=== PATIENT | male | born 1985 | race American Indian/Alaskan Native ===

== ENCOUNTER 2020-08-26 13:34 | Outpatient (REF) | payer OTHER, SELFPAY ==
[2020-08-26 16:49] LABS: Platelet Count 187 X10*3/uL (160-400)
[2020-08-26 16:59] LABS: Estimated Average Glucose 88 mg/dL; Hemoglobin A1c % 4.7 %
[2020-08-26 17:02] LABS: Prothrombin Time 11.4 SEC (10.8-13.0)
[2020-08-26 17:10] LABS: Anion Gap 11 (12-20); Blood Urea Nitrogen 18 mg/dL (9-16); Calcium 9.1 mg/dL (8.4-10.2); Carbon Dioxide 30 mmol/L (22-29); Chloride 102 mmol/L (96-108); Estimated Glomerular Filt Rate > 60; Glucose Random 84 mg/dL (60-115); Potassium 4.5 mmol/l (3.3-5.1); Sodium 138 mmol/L (135-145)
[2020-08-29 08:57] LABS: HBsAGNum1 0.21 S/CO (0.00-0.99); HIV AB/AG Nonreactive (Nonreactive); HIV Num 1 0.08 S/CO (0.00-0.99); Hepatitis B Surface Antigen Negative (Negative)
[2020-08-29 09:46] LABS: ~HepC Num1 0.07 S/CO (0.00-0.79); ~Hepatitis C Antibody Nonreactive (Nonreactive)
== END 2020-08-26 13:35 | disposition home or self-care (01) ==
LOC: HO.HMGCLDS 13:34
PROVIDERS: PCP Internal Medicine
DX: Z01.812 Encounter for preprocedural laboratory examination (principal)
CPT/HCPCS: 36415; 80048; 83036; 85049; 85610; 86803; 87340; 87389

== ENCOUNTER 2021-08-02 13:08 | Outpatient (REF) | payer OTHER, SELFPAY ==
[2021-08-02 16:42] LABS: INTERNATIONAL NORM RATIO 0.9 (0.9-1.1); Prothrombin Time 10.4 SEC (9.9-13.0)
[2021-08-02 16:45] LABS: Platelet Count 159 X10*3/uL (160-400)
[2021-08-02 17:04] LABS: Anion Gap 12 (12-20); Blood Urea Nitrogen 12 mg/dL (9-16); Calcium 9.5 mg/dL (8.4-10.2); Carbon Dioxide 27 mmol/L (22-29); Chloride 106 mmol/L (96-108); Estimated Glomerular Filt Rate > 60; Glucose Random 89 mg/dL (60-115); Potassium 4.2 mmol/L (3.3-5.1); Sodium 141 mmol/L (135-145)
[2021-08-03 09:21] LABS: HBsAGNum1 0.18 S/CO (0.00-0.99); HIV AB/AG Nonreactive (Nonreactive); HIV Num 1 0.12 S/CO (0.00-0.99); Hepatitis B Surface Antigen Negative (Negative); ~HepC Num1 0.08 S/CO (0.00-0.79); ~Hepatitis C Antibody Nonreactive (Nonreactive)
== END 2021-08-02 13:09 | disposition home or self-care (01) ==
LOC: HO.HMGCLDS 13:08
PROVIDERS: PCP Internal Medicine
DX: Z01.812 Encounter for preprocedural laboratory examination (principal)
CPT/HCPCS: 36415; 80048; 85018; 85049; 85610; 86803; 87340; 87389

== ENCOUNTER 2024-06-24 11:19 | Outpatient (AMB) | payer OTHER, SELFPAY ==
[2024-06-24 11:27] VITALS: BP 116/80; PULSE 91; TEMP 36.9; O2SAT 97; BMI 24.8
--- NOTE | 2024-06-24 11:27 | MHC.OFFWIV ---
Intake Vital Signs 06/24/24 11:27 Height 5 ft 8 in Weight 163 lb BMI 24.8 BP 116/80 Blood Pressure Location Rt brachial Position Sitting Pulse 91 Pulse Source Pulse Oximeter Temp 98.4 F Temp Source Oral Pulse Oximetry (%) 97 Oxygen Delivery Method Room Air Intake Visit Reasons: rt shoulder pain( 10) and swelling Intake Note: pt c/o severe LT shoulder pain. Ongoing, worsening over 2-3 months. Patient Tobacco Use Status: Never used Tobacco Allergies Laxative Allergy (Mild, Uncoded 06/24/24 11:51) Abdominal Pain LAXATIVE Allergy (Unknown, Uncoded 06/24/24 11:51) STOMACH UPSET salacylic acid Allergy (Unknown, Uncoded 06/24/24 11:51) hives Do you need a note to return to daycare/school/sports/work: No HPI rt shoulder pain( 10) and swelling HPI Details This note is constructed using voice recognition software. While every effort has been made to ensure accuracy, log washer errors may have been included. The patient is a 30 year old male who presents to the clinic today with left shoulder pain for the last 3 months , which was mild in nature, however he hyperextended his shoulder 3 days ago and has relatively high amount of pain since that time in the anterior portion of the shoulder. He reports numbness and tingling into his fingers which is intermittent nature. He is unable to lift his arm. He is right-hand dominant. He has had no additional injury or surgery to the shoulder. [facility] Social History Housing: Apartment Patient Tobacco Use Status: Never used Tobacco e-Cigarette/Vaping Use: Never Used Current occupational status: employed Cognitive needs: No Hearing needs: No Vision needs: No Review of Systems Const All systems reviewed & are unremarkable except as noted in HPI and below Physical Exam Vital Signs: Last Vital Signs Temp 98.4 F 06/24/24 11:27 Pulse 91 06/24/24 11:27 BP 116/80 06/24/24 11:27 Pulse Ox 97 06/24/24 11:27 Oxygen Delivery Method Room Air 06/24/24 11:27 BMI result Body Mass Index 24.8 Const General: cooperative, healthy appearing, comfortable, no acute distress and alert Orientation/consciousness: patient oriented x3 Limitations: no limitations Skin General skin exam: no rashes or lesions noted, elasticity normal and turgor normal Neuro General: patient oriented x3 Extrem Other: Strength 5/5 and hand grasp, however patient unable to a abduct left arm. Physical examination limited due to pain. TTP anterior shoulder near AC joint. No palpable edema, no erythema, no warmth. Intact distal neurovascular exam. General: Yes normal to inspection, Yes full ROM, Yes capillary refill normal and Yes normal exam except as noted Psych Appearance: grossly normal Mental Status: mental status grossly normal Speech and movement: Normal speech and movement present Affect: normal affect Assessment & Plan Assessment & Plan (1) Left shoulder strain: Code(s): S46.912A - Strain of unspecified muscle, fascia and tendon at shoulder and upper arm level, left arm, initial encounter Qualifiers: Encounter type: initial encounter Qualified Code(s): S46.912A - Strain of unspecified muscle, fascia and tendon at shoulder and upper arm level, left arm, initial encounter Plan: Likely from hyperextending at the gym. Provided patient with sling for immobilization, however advised to stretch the arm and shoulder at least several times a day to avoid frozen shoulder. X-ray ordered today to rule out pathology, however advised patient that this likely will not show etiology given nature of the injury. Advised patient to follow up with PCP as any additional imaging beyond x-ray would require PCP order in referral. Prednisone burst sent for symptomatic management for anti-inflammatory effects, advised Tylenol while taking prednisone. May switch back to NSAIDs after completion of prednisone. Xray viewed by me, no obvious deformity. Plan See above for full details and plan. Orders: Orders XR shoulder LT min 2V Today M25.512 - Pain in left shoulder Medications: New prednisone 40 mg (2 x 20 mg) PO DAILY 5 days 10 tabs 0RF Coding Level of Care Code Est Pt Level 4 (35482) Diagnoses Strain of left shoulder, initial encounter S46.912A Encounter type: initial encounter
== END 2024-06-24 12:49 | disposition home or self-care (01) ==
PROVIDERS: PCP Internal Medicine; Visit Provider Registered Nurse
DX: S46.912A Strain of unspecified muscle, fascia and tendon at shoulder and upper arm level, left arm, initial encounter (principal)
CPT/HCPCS: 99214

== ENCOUNTER 2024-06-24 12:23 | Outpatient (REF) | payer OTHER, SELFPAY ==
--- NOTE | ~2024-06-24 | XR_ITS ---
EXAMINATION: XR SHOULDER, LEFT CLINICAL INFORMATION: Left shoulder pain COMPARISON: None available. TECHNIQUE: Three views of the left shoulder. FINDINGS: Supraspinatus calcific tendinitis best demonstrated on the scapular Y view. No joint space narrowing. No fracture. The acromioclavicular joint is normal. XR/XR shoulder LT min 2V IMPRESSION: Supraspinatus calcific tendinitis.
== END 2024-06-24 12:24 | disposition home or self-care (01) ==
LOC: HO.HMGCX 12:23
PROVIDERS: PCP Internal Medicine; Visit Provider Registered Nurse
DX: M25.512 Pain in left shoulder (principal)
CPT/HCPCS: 73030

== ENCOUNTER 2024-10-09 13:00 | Outpatient (AMB) | payer OTHER, SELFPAY ==
[2024-10-09 13:05] VITALS: BP 118/88; PULSE 81; O2SAT 97; BMI 25.5
--- NOTE | 2024-10-09 13:05 | MHC.PC.OV ---
Vital Signs 10/09/24 13:05 Height 5 ft 8 in Weight 167 lb 8 oz BMI 25.5 BP 118/88 Blood Pressure Location Lt brachial Position Sitting Pulse 81 Pulse Source Pulse Oximeter Pulse Oximetry (%) 97 Oxygen Delivery Method Room Air Intake Visit Reasons: Needs [facility] referral Allergies Laxative Allergy (Mild, Uncoded 06/24/24 11:51) Abdominal Pain LAXATIVE Allergy (Unknown, Uncoded 06/24/24 11:51) STOMACH UPSET salacylic acid Allergy (Unknown, Uncoded 06/24/24 11:51) hives Medication List - Last Reconciled 10/09/24 by Kamla Perera MD mesalamine 4.8 grams PO DAILY Tobacco use date assessed: 10/09/24 Dental Screening Dental Screen Date: 10/09/24 Did you have a dental visit in the last 12 months?: Yes Did you have a dental problem in the last 6 months where you did not have access to dental care?: No Was dental information given to patient?: Patient has dentist HPI Needs [facility] referral HPI Details Chief Complaint The patient is experiencing feelings of depression and anxiety. Assessment and Plan 38-year-old male with a history of ulcerative colitis presenting with symptoms of depression and anxiety. The patient reports feeling overwhelmed by living with his condition and has a history of consulting a therapist. He has used lorazepam in the past for acute anxiety episodes but prefers not to use benzodiazepines or SSRIs due to concerns about side effects and potential dependency. The patient currently manages his symptoms with meditation. He reports that his ulcerative colitis is stable on mesalamine with controlled abdominal symptoms. Physical health is generally unremarkable, but a comprehensive physical exam is recommended as one has not been done recently. 1. Depression The patient experiences underlying depression related to living with chronic illness. The patient has opted against medication due to concerns about side effects and prefers therapy as a treatment option. A referral to a therapist will be facilitated, with sessions suggested every two weeks for ongoing support. 2. Ulcerative Colitis The patient is on a maintenance dose of mesalamine with stable symptoms and dietary management. Continue with the current management plan. The patient should ensure regular follow-ups to monitor the condition and adjust treatment as necessary. 3. Anxiety Anxiety management has included lorazepam for acute episodes, but the patient prefers non-pharmacological interventions such as meditation due to concerns about dependency. Counseling through a therapist is recommended to provide coping strategies and further management without medication. Problem List - Ulcerative Colitis - Depression - Anxiety Patient Instructions - Continue taking mesalamine as prescribed for ulcerative colitis and maintain dietary control to prevent flare-ups. - Engage in regular therapy sessions to address depression and anxiety symptoms. - Continue practicing mindfulness and meditation techniques as supportive self-care. - Schedule and attend a complete physical examination to assess overall health status. - Seek medical attention promptly if there is any worsening of mental health symptoms or new symptoms related to ulcerative colitis. Patient will meet with our behavior health coordinator today so we can help him set up with a new therapist [facility] Social History Housing: Apartment Patient Tobacco Use Status: Never used Tobacco e-Cigarette/Vaping Use: Never Used Current occupational status: employed Cognitive needs: No Hearing needs: No Vision needs: No Questionnaire PHQ-9 Over the last 2 weeks, how often have you been bothered by any of the following problems? 1. Little interest or pleasure in doing things: not at all 2. Feeling down, depressed, or hopeless: not at all 3. Trouble falling or staying asleep, or sleeping too much: not at all 4. Feeling tired or having little energy: not at all 5. Poor appetite or overeating: not at all 6. Feeling bad about yourself - or that you are a failure or have let yourself or your family down: more than half the days 7. Trouble concentrating on things, such as reading the newspaper or watching television: not at all 8. Moving or speaking so slowly that other people could have noticed. Or the opposite - being so fidgety or restless that you have been moving around a lot more than usual: not at all 9. Thoughts that you would be better off or of hurting yourself in some way: more than half the days Total score: 4 Depression Screening Interpretation: Negative Depression Screening Done: Yes 54335 - PHQ-9 Billing: Yes Source: Developed by Drs. Hoang Weinberg, Gemini Hutchinson, Sushant Fajardo and colleagues, with an educational wil from [employer]. Thrive Questionnaire Date Thrive assessed: 10/09/24 I am a: Patient What is your living situation today?: I do not have a steady places to live [place] Within the past 12 months, did the food you bought not last and you didn't have the money to get more?: Sometimes True Within the past 12 months, did you worry whether your food would run out before you got money to buy more?: Sometimes True Do you have trouble paying for medicines?: No Do you have trouble getting transportation to medical appointments?: No Do you have trouble paying your heating and electricity bill?: Yes Do you have trouble taking care of your child, family member or friend?: No Do you have trouble with day-to-day activities such as bathing, preparing meals, shopping, managing finances, etc.?: No Are you currently unemployed and looking for a job?: Yes Are you interested in more education?: No Please select the resources that you would like help with: None Currently or been in a relationship where the following occur: I choose not to answer THRIVE Score: 4 AUDIT C Alcohol Use Questionnaire (AUDIT-C) 1. How often do you have a drink containing alcohol?: Never 3. How often do you have six or more drinks on one occasion?: Never Total Score: 0 Score Reviewed/Action Taken: Yes GAVIN-7 AMB Questionnaire GAVIN-7 Date GAVIN - 7 assessed: 10/09/24 Feeling nervous, anxious, or on edge: 2 = More than half the days Not being able to stop or control worryin = More than half the days Worrying too much about different things: 2 = More than half the days Trouble relaxin = More than half the days Being so restless that it is hard to sit still: 2 = More than half the days Becoming easily annoyed or irritable: 2 = More than half the days Feeling afraid as if something awful might happen: 2 = More than half the days Total GAVIN-7 score (0-4 normal; 5-9 mild; 10-14 moderate; 15-21 severe): 14 Source: Developed by Drs. Hoang Weinberg, Gemini Hutchinson, Sushant Fajardo and colleagues, with an educational wil from [employer]. GAVIN-7 Assessment Billing GAVIN-7 Assessment Tool: GAVIN-7 Assessment 70068 Review of Systems Const All systems reviewed & are unremarkable except as noted in HPI and below Physical exam (Primary Care) Vital Signs: Last Vital Signs Pulse 81 10/09/24 13:05 BP 118/88 10/09/24 13:05 Pulse Ox 97 10/09/24 13:05 Oxygen Delivery Method Room Air 10/09/24 13:05 BMI result Body Mass Index 25.5 Tobacco/Smoking Status: Tobacco use Status Tobacco use date assessed 10/09/24 10/09/24 13:08 Patient Tobacco Use Status Never used Tobacco 10/09/24 13:08 e-Cigarette/Vaping Use Never Used 10/09/24 13:08 PHQ-9: PHQ-9 Score PHQ-9: Total score 4 10/09/24 13:25 Depression Screening Interpretation: Negative Thrive Assessment: Date of Thrive Assessment Date Thrive assessed 10/09/24 10/09/24 13:08 Currently or been in a relationship where the following occur: I choose not to answer Const General: no acute distress Orientation/consciousness: patient oriented x3 Eyes General: appearance normal, both eyes and all related structures Resp Effort & Inspection: normal respiratory effort and able to speak in complete sentences Neuro General: patient oriented x3 Psych Mental Status: mental status grossly normal Coding Level of Care Code Est Pt Level 4 (36285) Diagnoses Moderate episode of recurrent major depressive disorder F33.1 Active/Remission status: currently active Major depression episode severity: moderate Anxiety, generalized F41.1 Crohn's disease with complication, unspecified gastrointestinal tract location K50.919 Digestive disease complication type: unspecified complication Gastrointestinal tract location: unspecified location Additional Codes GAVIN-7 Assessment Billing - GAVIN-7 Assessment Tool: GAVIN-7 Assessment 13590 ([id number]) PHQ-9 - 79605 - PHQ-9 Billing: Yes ([id number]) Assessment & Plan Assessment & Plan (1) Major depression, recurrent: Code(s): F33.9 - Major depressive disorder, recurrent, unspecified Category: Medical Qualifiers: Active/Remission status: currently active Major depression episode severity: moderate Qualified Code(s): F33.1 - Major depressive disorder, recurrent, moderate (2) Anxiety, generalized: Code(s): F41.1 - Generalized anxiety disorder Category: Medical (3) Crohn's disease: Code(s): K50.90 - Crohn's disease, unspecified, without complications Category: Medical Qualifiers: Digestive disease complication type: unspecified complication Gastrointestinal tract location: unspecified location Qualified Code(s): K50.919 - Crohn's disease, unspecified, with unspecified complications Plan Chief Complaint The patient is experiencing feelings of depression and anxiety. Assessment and Plan 38-year-old male with a history of Crohn's disease presenting with symptoms of depression and anxiety. The patient reports feeling overwhelmed by living with his condition and has a history of consulting a therapist. He has used lorazepam in the past for acute anxiety episodes but prefers not to use benzodiazepines or SSRIs due to concerns about side effects and potential dependency. The patient currently manages his symptoms with meditation. He reports that his ulcerative colitis is stable on mesalamine with controlled abdominal symptoms. Physical health is generally unremarkable, but a comprehensive physical exam is recommended as one has not been done recently. 1. Depression The patient experiences underlying depression related to living with chronic illness. The patient has opted against medication due to concerns about side effects and prefers therapy as a treatment option. A referral to a therapist will be facilitated, with sessions suggested every two weeks for ongoing support. 2. Cross disease The patient is on a maintenance dose of mesalamine with stable symptoms and dietary management. Continue with the current management plan. The patient should ensure regular follow-ups to monitor the condition and adjust treatment as necessary. 3. Anxiety Anxiety management has included lorazepam for acute episodes, but the patient prefers non-pharmacological interventions such as meditation due to concerns about dependency. Counseling through a therapist is recommended to provide coping strategies and further management without medication. Problem List - Crohn's disease - Depression - Anxiety Patient Instructions - Continue taking mesalamine as prescribed for Crohn's disease and maintain dietary control to prevent flare-ups. - Engage in regular therapy sessions to address depression and anxiety symptoms. - Continue practicing mindfulness and meditation techniques as supportive self-care. - Schedule and attend a complete physical examination to assess overall health status. - Seek medical attention promptly if there is any worsening of mental health symptoms or new symptoms related to ulcerative colitis. Patient will meet with our behavior health coordinator today so we can help him set up with a new therapist
== END 2024-10-09 14:41 | disposition home or self-care (01) ==
PROVIDERS: PCP Internal Medicine; Visit Provider Internal Medicine
DX: F33.1 Major depressive disorder, recurrent, moderate (principal); F41.1 Generalized anxiety disorder; K50.919 Crohn's disease, unspecified, with unspecified complications

== ENCOUNTER → 2024-10-09 13:00 | Outpatient (BNVA) | payer OTHER, SELFPAY | PROVIDERS: PCP Internal Medicine; Visit Provider Internal Medicine | DX: F33.1 Major depressive disorder, recurrent, moderate (principal); F41.1 Generalized anxiety disorder; K50.919 Crohn's disease, unspecified, with unspecified complications | CPT/HCPCS: 96127; 99212 ==

== ENCOUNTER 2025-02-05 16:08 | Outpatient (REF) | payer OTHER, SELFPAY ==
[2025-02-06 14:43] LABS: Influenza A PCR NEGATIVE (Negative); Influenza B PCR NEGATIVE (Negative); Resp Syncy Virus RNA Qual PCR NEGATIVE (Negative); SARS COV2 PCR INHOUSE NEGATIVE (Negative)
== END 2025-02-05 16:09 | disposition home or self-care (01) ==
LOC: HO.LNP 16:08
PROVIDERS: PCP Internal Medicine; Visit Provider Physician Assistant Medical
DX: J06.9 Acute upper respiratory infection, unspecified (principal)
CPT/HCPCS: 0241U; 99212

== ENCOUNTER 2025-02-05 16:08 | Outpatient (AMB) | payer OTHER, SELFPAY ==
--- NOTE | 2025-02-05 16:16 | AM.OFFWIN_ITS ---
Intake Vital Signs 02/05/25 16:18 Height 5 ft 8 in Weight 171 lb BMI 26.0 BP 126/80 Blood Pressure Location Rt brachial Position Sitting Pulse 91 Pulse Source Pulse Oximeter Pulse Oximetry (%) 97 Oxygen Delivery Method Room Air Intake Visit Reasons: EP-nasal drip, headaches, sore throat, body ache Intake Note: Patient here for sinus pressure, headaches post nasal drip, coughing up phlegm that has been present for about 1 week. Patient Tobacco Use Status: Never used Tobacco Allergies Laxative Allergy (Mild, Uncoded 02/05/25 16:18) Abdominal Pain LAXATIVE Allergy (Unknown, Uncoded 02/05/25 16:18) STOMACH UPSET salacylic acid Allergy (Unknown, Uncoded 02/05/25 16:18) hives Do you need a note to return to daycare/school/sports/work: Yes HPI HPI Comments History of Present Illness Details This is a 39-year-old male who presented to the walk-in clinic complaining of flu-like symptoms x1 week. Patient reports nasal congestion, sinus pain/pressure, headache, rhinorrhea, sore throat, dry cough, and myalgias. He states that his symptoms have been worsening for the past 1 week. He denies any known sick contacts but states that he is constantly around people. He denies any chest pain or shortness of breath. He denies any abdominal pain or nausea/vomiting/diarrhea. [facility] Social History Housing: Apartment Patient Tobacco Use Status: Never used Tobacco e-Cigarette/Vaping Use: Never Used Current occupational status: employed Cognitive needs: No Hearing needs: No Vision needs: No Review of Systems Const All systems reviewed & are unremarkable except as noted in HPI and below Reports no additional complaints Eyes Reports no additional complaints ENT Reports no additional complaints Card Reports no additional complaints Resp Reports no additional complaints GI Reports no additional complaints Reports no additional complaints Musc Reports no additional complaints Skin/Breast Reports system reviewed and no additional complaints, except as documented Neuro Reports no additional complaints Psych Reports no additional complaints Endo Reports no additional complaints Christiano/Lymph Reports no additional complaints Aller/Immun Reports no additional complaints Physical Exam Vital Signs: Last Vital Signs Pulse 91 02/05/25 16:18 BP 126/80 02/05/25 16:18 Pulse Ox 97 02/05/25 16:18 Oxygen Delivery Method Room Air 02/05/25 16:18 BMI result Body Mass Index 26.0 Const Other: Vital signs reviewed. Constitutional: Non-toxic appearing. No acute distress. Well-developed and well-nourished. HEENT: Normocephalic and atraumatic. Tympanic membranes without erythema, edema, or bulging bilaterally. External auditory canals without erythema or edema bilaterally. Moist mucous membranes. There is mild posterior pharyngeal erythema with mild tonsillar edema but airway is patent without stridor or muffled voice. Skin: Warm and dry. No rashes or lesions noted. Neck: Full and painless range of motion. No cervical lymphadenopathy. Cardio: Regular rate and rhythm. No murmurs, gallops, or rubs. No lower extremity edema. No JVD. Pulmonary: No respiratory distress. No accessory muscle usage. Clear to auscultation bilaterally without wheezing, crackles, or rhonchi. Gastrointestinal: Soft, nontender, and nondistended in all 4 quadrants. Musculoskeletal: Normal range of motion in joints throughout the body. No deformity or other signs of injury. Neuro: Alert and oriented x4. Cranial nerves 2-12 grossly intact. No focal deficits appreciated. Psych: Normal mood and affect. Assessment & Plan Assessment & Plan (1) Acute upper respiratory infection, unspecified: Code(s): J06.9 - Acute upper respiratory infection, unspecified Plan This is a 39-year-old male who presented to the walk-in clinic complaining of viral URI symptoms, which have been worsening for the past 1 week. His physical exam is benign with the exception of mild posterior pharyngeal erythema and tonsillar edema. His vital signs are stable. History and physical most consistent with an acute viral upper respiratory tract infection. Recommended symptomatic management including rest, increase fluids/hydration, humidification at nighttime, zinc/vitamin-C supplementation, saltwater gargles, acetaminophen/ibuprofen for pain/fever, and [id number] throat lozenges and decongestants. Patient was reassured that this is likely a self-limiting illness. COVID/RSV/flu swab sent. Patient was advised to proceed directly to the emergency room if he were to develop any concerning symptoms such as chest pain, shortness of breath, hemoptysis, increased sputum production/purulence, throat swelling or inability to maintain his airway. Patient verbalized understanding and is agreeable with the plan. Orders: Orders SARS-CoV2/FLU/RSV Today J06.9 - Acute upper respiratory infection, unspecified Coding Level of Care Code Est Pt Level 3 (21492) Diagnoses Acute upper respiratory infection, unspecified J06.9
[2025-02-05 16:18] VITALS: BP 126/80; PULSE 91; O2SAT 97; BMI 26.0
--- OUTSIDE RECORDS SUMMARY | 2025-02-05 17:31 | XMS_ITS | Clinical Summary ---
Author Organization [facility] Address [address] [place] [address] Care Team Providers Care Mica Miner Name Role Phone Unavailable Primary Care Provider Unavailabl e Social History Tobacco Use Types Packs/Day Years Used Date Smoking Tobacco: Never Assessed Sex and Gender Information Value Date Recorded Sex Assigned at Not on file Gender Identity Not on file Sexual Orientation Not on file Plan of Treatment Not on file
== END 2025-02-05 16:53 | disposition home or self-care (01) ==
PROVIDERS: PCP Internal Medicine; Visit Provider Physician Assistant Medical
DX: J06.9 Acute upper respiratory infection, unspecified (principal)

== ENCOUNTER 2025-02-22 15:43 | Outpatient (AMB) | payer OTHER, SELFPAY ==
--- NOTE | 2025-02-22 15:45 | AM.OFFWIN_ITS ---
Intake Vital Signs 02/22/25 15:53 Weight 172 lb BP 122/80 Blood Pressure Location Rt brachial Position Sitting Pulse 55 Pulse Source Pulse Oximeter Pulse Oximetry (%) 98 Oxygen Delivery Method Room Air Intake Visit Reasons: EP-uti Intake Note: Patient here for frequent urination, urinating a lot and having to stop in between to completely empty bladder which started about 1 week ago. Patient Tobacco Use Status: Never used Tobacco Allergies Laxative Allergy (Mild, Uncoded 02/22/25 15:52) Abdominal Pain LAXATIVE Allergy (Unknown, Uncoded 02/22/25 15:52) STOMACH UPSET salacylic acid Allergy (Unknown, Uncoded 02/22/25 15:52) hives Do you need a note to return to daycare/school/sports/work: No HPI HPI Comments History of Present Illness Details History of Present Illness - The patient is a 39-year-old male pres enting with difficulty urinating, described as an intermittent stream, with some pain with urination and increased frequency of urination. - Symptoms commenced approximately one w tuscarora ago with no burning during urination. - Reports increased frequency of urinati on; measures such as cessation of coffee intake and introduction of cranberry juice and pumpkin seeds have provided some symptom relief. - Denies sexual activity for the last 2 years. - Reports no presence of blood in his ur ine, back or abdominal pain, flank pain, or fever. - Denies history of prostate issues or k idney stones - Concerned about antibiotics affecting colitis; currently managed with probiotics. Physical Exam General: Cooperative, healthy appearing, comfortable, no acute distress and well developed Orientation: Patient oriented x3 Limitations: No limitations Head: Normal to inspection Ears: Hearing grossly normal bilaterally Nose: Normal External nose present Face and sinus: Normal facial exam Eyes: Appearance normal, both eyes and all related structures Neck: Normal visual inspection and Yes full ROM Respiratory: Normal respiratory effort and able to speak in complete sentences. Skin: No rashes or lesions noted Neuro: Patient oriented x3 Extremities: Normal to inspection [facility] Social History Housing: Apartment Patient Tobacco Use Status: Never used Tobacco e-Cigarette/Vaping Use: Never Used Current occupational status: employed Cognitive needs: No Hearing needs: No Vision needs: No Review of Systems Const All systems reviewed & are unremarkable except as noted in HPI and below Physical Exam Vital Signs: Last Vital Signs Pulse 55 02/22/25 15:53 BP 122/80 02/22/25 15:53 Pulse Ox 98 02/22/25 15:53 Oxygen Delivery Method Room Air 02/22/25 15:53 Results AMB Urinalysis, Automated UA Leukoctes 0 Ricardo/uL Last Edit by CaylaSaeid Michael [facility] on 02/22/25 16:10 UA Nitrite Negative Last Edit by [facility], [facility] on 02/22/25 16:10 UA Urobilinogen 0.2 mg/dL Last Edit [facility], [facility] on 02/22/25 16:10 UA Protein 5.5 mg/dL Last Edit by [facility], [facility] on 02/22/25 16:10 UA pH 0 Last Edit by [facility], [facility] on 02/22/25 16:10 UA Blood 0 Quintin/uL Last Edit by CaylaCeleste Michael [facility] on 02/22/25 16:10 UA Specific [place] 1.025 Last Edit by [facility] on 02/22/25 16:10 UA Ketone Negative Last Edit by [facility] on 02/22/25 16:10 UA Bilirubin 0 mg/dL Last Edit by [facility] on 02/22/25 16:10 UA Glucose 0 mg/dL Last Edit by [facility] on 02/22/25 16:10 Assessment & Plan Assessment & Plan (1) UTI (urinary tract infection): Code(s): N39.0 - Urinary tract infection, site not specified Qualifiers: Hematuria presence: without hematuria Urinary tract infection type: acute cystitis Qualified Code(s): N30.00 - Acute cystitis without hematuria Plan: In response to the patient's intermittent urinary stream and possible UTI symptoms, I have prescribed cefuroxime 500 mg to be taken every 12 hours over five days. This choice is made to cover common pathogens that cause urinary tract infections. Due to the patient's history of colitis, I have advised spacing probiotics away from antibiotics by six hours to maintain gut john balance. He is instructed to monitor symptoms, with follow-up scheduled with Dr. Perera if no resolution in his symptoms. A urine culture will be conducted to ascertain infection severity or to adjust treatment if required. In case of intensified symptoms such as significant pain or fever, the patient is directed to seek emergency care to address any complications swiftly. The antibiotic prescription is now available at the pharmacy, and comprehensive advice has been provided regarding potential signs of complications. Patient was informed and verbally consented to the use of an ambient scribe for clinic note documentation during this visit. Orders: Orders Urine Culture Today N39.0 - Urinary tract infection, site not specified Medications: New cefuroxime axetil 500 mg PO Q12H 10 tabs 0RF Coding Level of Care Code Est Pt Level 3 (02146) Diagnoses Acute cystitis without hematuria N30.00 Hematuria presence: without hematuria Urinary tract infection type: acute cystitis
[2025-02-22 15:53] VITALS: BP 122/80; PULSE 55; O2SAT 98
--- OUTSIDE RECORDS SUMMARY | 2025-02-22 18:25 | XMS_ITS | Clinical Summary ---
Author Organization [facility] Address [address] [place] [address] Care Team Providers Care Conductor/Engineer Name Role Phone Unavailable Primary Care Provider Unavailabl e Social History Tobacco Use Types Packs/Day Years Used Date Smoking Tobacco: Never Assessed Sex and Gender Information Value Date Recorded Sex Assigned at Not on file Gender Identity Not on file Sexual Orientation Not on file Plan of Treatment Not on file
== END 2025-02-22 16:17 | disposition home or self-care (01) ==
PROVIDERS: PCP Internal Medicine; Visit Provider Physician Assistant
DX: N30.00 Acute cystitis without hematuria (principal); Z13.9 Encounter for screening, unspecified

== ENCOUNTER 2025-02-22 15:43 | Outpatient (REF) | payer OTHER, SELFPAY | END 2025-02-22 15:44 | disposition home or self-care (01) | LOC: HO.LAB 15:43 | PROVIDERS: PCP Internal Medicine | DX: N30.00 Acute cystitis without hematuria (principal) | CPT/HCPCS: 81003; 87086; 99212 ==

== ENCOUNTER 2025-02-24 14:15 | Outpatient (AMB) | payer OTHER, SELFPAY ==
--- NOTE | 2025-02-24 14:22 | AM.OFFWIN_ITS ---
Intake Vital Signs 02/24/25 14:26 Weight 172 lb BP 130/90 H Blood Pressure Location Lt brachial Position Sitting Pulse 76 Pulse Source Pulse Oximeter Pulse Oximetry (%) 98 Oxygen Delivery Method Room Air Intake Visit Reasons: EP UTI issues still Patient Tobacco Use Status: Never used Tobacco Allergies Laxative Allergy (Mild, Uncoded 02/22/25 15:52) Abdominal Pain LAXATIVE Allergy (Unknown, Uncoded 02/22/25 15:52) STOMACH UPSET salacylic acid Allergy (Unknown, Uncoded 02/22/25 15:52) hives Medication List - Last Reconciled 02/24/25 by Kamla Perera MD lorazepam 0.5 mg PO DAILY PRN mesalamine 4.8 grams PO DAILY HPI EP UTI issues still HPI Details History - The patient is a 39-year-old male pres enting with difficulty with urination. - Reports an onset of symptoms approxima tely one and a half weeks ago. - Describes intermittent urinary stream, particularly experiencing nocturia and difficulty initiating urination. - Urine analysis previously performed wa s negative for infection, leading to a cessation of antibiotic use. - Expresses concern regarding potential prostatic issues, though no prior history of prostatic disease was noted. Problem List - Possible Prostatic Hypertrophy Patient Instructions - Start prescribed medication to aid uri nary flow, taken once daily. Flomax - Monitor for any adverse effects, inclu ding allergic reactions or abdominal cramping, and discontinue use if these occur. - Expect a follow-up appointment with a urologist, who will confirm diagnosis and further evaluate the condition. - Contact pharmacy to collect medication . - Await contact from the urology office for scheduling details. Review of Systems - General: No fever no chills - Neurological: No headaches no dizziness - Ear nose throat: No sore throat no hearing difficulty no ear pain - Cardiovascular: No syncope, no chest pain, no palpitations - Gastrointestinal: No nausea vomiting or diarrhea - Endocrine: No polydipsia no heat intolerance - Genitourinary: No dysuria , no blood in urine Physical Exam - General: No acute distress - HEENT: No acute findings - Neck: Supple - Respiratory system: Able to talk in f ull sentences, no audible wheeze - Gastrointestinal: No pain - Extremities: No new findings - OPERATIONAL TEST MECHANIC: Alert awake oriented x3 motor se nsory intact - Skin: Normal turgor PFSH Social History Housing: Apartment Patient Tobacco Use Status: Never used Tobacco e-Cigarette/Vaping Use: Never Used Current occupational status: employed Cognitive needs: No Hearing needs: No Vision needs: No Physical Exam Vital Signs: Last Vital Signs Pulse 76 02/24/25 14:26 BP 130/90 H 02/24/25 14:26 Pulse Ox 98 02/24/25 14:26 Oxygen Delivery Method Room Air 02/24/25 14:26 Assessment & Plan Assessment & Plan (1) Weak urine stream: Code(s): R39.12 - Poor urinary stream Plan History - The patient is a 39-year-old male presenting with difficulty with urination. - Reports an onset of symptoms approximately one and a half weeks ago. - Describes intermittent urinary stream, particularly experiencing nocturia and difficulty initiating urination. - Urine analysis previously performed was negative for infection, leading to a cessation of antibiotic use. - Expresses concern regarding potential prostatic issues, though no prior history of prostatic disease was noted. Problem List - Possible Prostatic Hypertrophy Patient Instructions - Start prescribed medication to aid urinary flow, taken once daily. Flomax - Monitor for any adverse effects, including allergic reactions or abdominal cramping, and discontinue use if these occur. - Expect a follow-up appointment with a urologist, who will confirm diagnosis and further evaluate the condition. - Contact pharmacy to collect medication. - Await contact from the urology office for scheduling details. Orders: Referrals Urology Referral R39.12 - Poor urinary stream Medications: New tamsulosin (Flomax) 0.4 mg PO BEDTIME 30 caps 0RF Coding Level of Care Code Est Pt Level 3 (01501) Diagnoses Weak urine stream R39.12
[2025-02-24 14:26] VITALS: BP 130/90; PULSE 76; O2SAT 98
--- OUTSIDE RECORDS SUMMARY | 2025-02-24 16:33 | XMS_ITS | Clinical Summary ---
Author Organization [facility] Address [address] [place] [address] Care Team Providers Care Pneumatic Riveter Name Role Phone Unavailable Primary Care Provider Unavailabl e Social History Tobacco Use Types Packs/Day Years Used Date Smoking Tobacco: Never Assessed Sex and Gender Information Value Date Recorded Sex Assigned at Not on file Gender Identity Not on file Sexual Orientation Not on file Plan of Treatment Not on file
== END 2025-02-24 14:46 | disposition home or self-care (01) ==
PROVIDERS: PCP Internal Medicine; Visit Provider Internal Medicine
DX: R39.12 Poor urinary stream (principal)

== ENCOUNTER → 2025-02-24 14:15 | Outpatient (BNVA) | payer OTHER, SELFPAY | PROVIDERS: PCP Internal Medicine | DX: R39.12 Poor urinary stream (principal) | CPT/HCPCS: 99212 ==

== ENCOUNTER 2025-04-29 13:52 | Outpatient (REF) | payer OTHER, SELFPAY ==
[2025-04-29 16:49] LABS: Urine Cytology See Pathology rpt
== END 2025-04-29 13:53 | disposition home or self-care (01) ==
LOC: HO.LAB 13:52
PROVIDERS: PCP Internal Medicine; Visit Provider Nurse Practitioner Family
DX: R31.29 Other microscopic hematuria (principal); Z13.9 Encounter for screening, unspecified
CPT/HCPCS: 51798; 81003; 88112; 99202

== ENCOUNTER 2025-04-29 13:52 | Outpatient (AMB) | payer OTHER, SELFPAY ==
--- NOTE | 2025-04-29 14:06 | A.OFFVIS_ITS ---
Intake Visit Reasons: DX:weak urinary stream Intake Note: New Patient presents for initial visit for Dysuria Urology Medications: none Blood Thinner: none PVR: 0ml's Assistant Loan Processor Required: No Accompanied by: Self / Same As Patient Allergies Laxative Allergy (Mild, Uncoded 04/29/25 14:57) Abdominal Pain LAXATIVE Allergy (Unknown, Uncoded 04/29/25 14:57) STOMACH UPSET salacylic acid Allergy (Unknown, Uncoded 04/29/25 14:57) hives Medication List - Last Reconciled 04/29/25 by DAVY Blackburn-KARIN lorazepam 0.5 mg PO DAILY PRN mesalamine 4.8 grams PO DAILY HPI Comments Details: Walker is a 39-year-old male patient of Dr. Perera. He has a past medical history of colitis. He presents to the office today as a new patient for lower urinary tract symptoms. In discussion with the patient today reports approximately 2 months ago he had been experiencing issues with the ability to urinate however is unsure if this was related to a potential cold he had as he felt some of the medications he had been taking were possibly causing him to have urinary issues. He reports symptoms have since subsided. He discusses a previous history of following up here with Dr. Byers many years ago for left-sided varicocele that also has since subsided. He currently denies any bothersome urinary issues or concerns. He denies urinary urgency, urinary frequency, incontinence, nocturia, hematuria, dysuria, foul smelling urine, changes to urinary stream, flank pain, fever, and or chills. He is happy with his current voiding parameters. In office urinalysis results with the patient today. PVR 0 mL. We discussed potential causes of lower urinary tract symptoms patient was experiencing as well as further treatment options and risks and benefits of these treatment options. Will obtain retroperitoneal ultrasound for further assessment evaluation. All questions were answered. He does discuss his longstanding history of colitis and has been under the care of his operations label clerk for management. He otherwise offers no other issues or concerns at this time. [facility] Social History Housing: Apartment Patient Tobacco Use Status: Never used Tobacco e-Cigarette/Vaping Use: Never Used Current occupational status: employed Cognitive needs: No Hearing needs: No Vision needs: No Review of Systems Const All systems reviewed & are unremarkable except as noted in HPI and below Physical Exam Const General: cooperative, healthy appearing, comfortable, no acute distress, well developed, alert and awake Nutritional Appearance: average body habitus Orientation/consciousness: patient oriented x3 Limitations: no limitations HEENT Head: Yes normal to inspection, Yes normocephalic and Yes atraumatic Ears: hearing grossly normal bilaterally Eyes General: appearance normal, both eyes and all related structures Neck Neck: Yes normal visual inspection and Yes trachea midline Chest Chest palpation & inspection: normal inspection of the chest Resp Effort & Inspection: normal respiratory effort and able to speak in complete sentences Cardio Rate: regular rate GI Inspection: Yes normal to inspection General: Yes no CVA tenderness Back/Spine/Pelvis Back: no CVA tenderness Skin General skin exam: no rashes or lesions noted Neuro General: patient oriented x3 Extrem General: Yes normal to inspection Psych Appearance: grossly normal and well kempt Mental Status: mental status grossly normal Speech and movement: Normal speech and movement present and Clear speech present Affect: normal affect Attitude: cooperative Thought process: Normal thought process present Thought content: Normal thought content present Insight: Fair insight present (Psych) Judgement: Fair judgement present (Psych) Office Procedures Post Void Residual Post Residual Void Post Void Residual (PVR): 0 [id number]-[id number] Void Residual by ultrasound Results AMB Urinalysis, Automated UA Leukoctes 0 Ricardo/uL Last Edit by RUPERTO Hamilton on 04/29/25 15:30 UA Nitrite Last Edit by RUPERTO Hamilton on 04/29/25 15:30 UA Urobilinogen 0.2 mg/dL Last Edit by RUPERTO Hamilton on 04/29/25 15:3 0 UA Protein 0 mg/dL Last Edit by RUPERTO Hamilton on 04/29/25 15:30 UA pH 7.5 Last Edit by RUPERTO Hamilton on 04/29/25 15:30 UA Blood 10 Quintin/uL Last Edit by [facility]chen [facility] on 04/29/25 15:30 UA Specific [place] 1.010 Last Edit by Adriánchen [facility] on 04/29/25 15: 30 UA Ketone Last Edit by Nilayleidychen [facility] on 04/29/25 15:30 UA Bilirubin 0 mg/dL Last Edit by Nilayleidychen [facility]ell [facility] on 04/29/25 15:30 UA Glucose 0 mg/dL Last Edit by Kimi [facility] on 04/29/25 15:30 Results Reviewed Results Reviewed: Laboratory Last Values Urine pH (Auto) 7.5 04/29/25 14:19 Specific [place] (Auto) 1.010 04/29/25 14:19 Urine Protein (Auto) 0 mg/dL 04/29/25 14:19 Glucose (UA)(Auto) 0 mg/dL 04/29/25 14:19 Urine Blood (Auto) 10 Quintin/uL 04/29/25 14:19 Urine Bilirubin (Auto) 0 mg/dL 04/29/25 14:19 Urine Urobilinogen (Auto) 0.2 mg/dL 04/29/25 14:19 Leukocyte Esterase (Auto) 0 Ricardo/uL 04/29/25 14:19 Assessment & Plan Assessment & Plan (1) Weak urine stream: Code(s): R39.12 - Poor urinary stream Category: Medical Plan In office urinalysis results with the patient today; as noted above; will send for urine cytology. PVR 0 mL Will obtain retroperitoneal ultrasound for further assessment evaluation. He currently denies any bothersome urinary issues or concerns. He reports be happy with current voiding parameters. We discussed importance of adequate hydration relation to lower urinary tract symptoms as well as overall health and well-being. Follow-up in 1-3 months with imaging to be completed prior; or sooner with any issues, concerns, and or questions. Orders: Orders AMB Urinalysis Automated 04/29/25 Z13.9 - Encounter for screening, unspecified AMB Post Void Residual by ultrasound 04/29/25 R39.12 - Poor urinary stream Urine Cytology 04/29/25 R31.29 - Other microscopic hematuria US retroperitoneal comp 04/29/25 R39.12 - Poor urinary stream Patient Instructions: The patient had an opportunity to ask questions regarding the treatment plan. All questions were answered. Physical exam, labs, and imaging were discussed and reviewed in detail. As well as risks, benefits, and discussion of treatment choices. No major barriers to understanding were identified. The patient expressed understanding and agreement with the above treatment plan. The patient was made aware they should contact our office by phone for worsening of their current condition, the appearance of new symptoms, or with any questions or concerns. Compliance is encouraged with any medications and follow up testing that is ordered. It is a privilege to be allowed the opportunity to participate in? your urological care.? Again, if you have any questions or concerns If you have any questions or concerns please do not hesitate to contact me. The office is [phone]. This note is constructed using voice recognition software. While every effort has been made to ensure accuracy check examiner errors may have been included. Yours sincerely, BRAEDEN Blackburn Coding Level of Care Code New Pt Level 3 (38925) Diagnoses Weak urine stream R39.12 CPT Codes Post Residual Void - PVR CPT Code: 58268-Rmmw Void Residual by ultrasound ([id number])
--- OUTSIDE RECORDS SUMMARY | 2025-04-29 16:20 | XMS_ITS | Clinical Summary ---
Author Organization [facility] Address [address] [place] [address] Care Team Providers Care Triple Air Valve Tester Name Role Phone Unavailable Primary Care Provider Unavailabl e Social History Tobacco Use Types Packs/Day Years Used Date Smoking Tobacco: Never Assessed Sex and Gender Information Value Date Recorded Sex Assigned at Not on file Gender Identity Not on file Sexual Orientation Not on file Plan of Treatment Not on file
== END 2025-04-29 14:55 | disposition home or self-care (01) ==
LOC: HO.HUSH 13:53
PROVIDERS: PCP Internal Medicine; Visit Provider Nurse Practitioner Family
DX: Z13.9 Encounter for screening, unspecified (principal)

== ENCOUNTER 2025-05-14 15:16 | Outpatient (AMB) | payer OTHER, SELFPAY ==
--- OUTSIDE RECORDS SUMMARY | 2025-05-14 15:19 | XMS_ITS | Clinical Summary ---
Author Organization [facility] Address [address] [place] [address] Care Team Providers Care [employer] Police Coxswain Name Role Phone Unavailable Primary Care Provider Unavailabl e Social History Tobacco Use Types Packs/Day Years Used Date Smoking Tobacco: Never Assessed Sex and Gender Information Value Date Recorded Sex Assigned at Not on file Gender Identity Not on file Sexual Orientation Not on file Plan of Treatment Not on file
[2025-05-14 15:26] VITALS: BP 116/74; PULSE 84; TEMP 37.1; O2SAT 96; BMI 24.8
--- NOTE | 2025-05-14 15:26 | AM.OFFWIN_ITS ---
Intake Vital Signs 05/14/25 15:26 Height 5 ft 8 in Weight 163 lb BMI 24.8 BP 116/74 Blood Pressure Location Lt brachial Position Sitting Pulse 84 Pulse Source Pulse Oximeter Temp 98.7 F Temp Source Oral Pulse Oximetry (%) 96 Oxygen Delivery Method Room Air Intake Visit Reasons: EP cold like symptoms Intake Note: pt reports he has post nasal drip, chest congestion w/ productive cough, headache x1 day Patient Tobacco Use Status: Never used Tobacco Allergies Laxative Allergy (Mild, Uncoded 04/29/25 14:57) Abdominal Pain salacylic acid Allergy (Unknown, Uncoded 04/29/25 14:57) hives Do you need a note to return to daycare/school/sports/work: Yes Return to daycare/school/sports/work/other note: work HPI HPI Comments History of Present Illness Details History - The patient is a 39-year-old male pres enting with symptoms of a cough, congestion, and headache. - The cough and congestion started two d ays ago, accompanied by a headache that resolved with Tylenol. - He denies any shortness of breath, fev er, wheezing, or history of chronic obstructive pulmonary disease or asthma. - The patient denies current seasonal al lergies but acknowledges occasional occurrences without daily medication use. - He had contact with a sick individual two days ago, which may have contributed to his symptoms. - he has not tried taking any medication s besides the Tylenol to make himself feel better Physical Exam General: Cooperative, healthy appearing, comfortable and no acute distress Orientation/consciousness: Patient oriented x3 Limitations: No limitations Head: Normal to inspection Ears: Hearing grossly normal bilaterally, external ears normal and TM's normal b ilaterally Nose: Normal external nose present, Normal nares present with clear discharge noted Face and sinus: Normal facial exam and Yes sinuses nontender Mouth: Normal oral and palatal mucosa present and moist mucous membranes Throat: Yes tonsils normal, Yes uvula midline. Posterior oropharynx erythema, no exudates Eyes: Appearance normal, both eyes and all related structures Neck: Normal visual inspection, full ROM Respiratory: Clear to auscultation bilaterally. Normal respiratory effort, able to speak in complete sentences, no respiratory distress, not tachypneic, no tripod positioning and no use of accessory muscles Cardiovascular: Regular rate and rhythm. Normal S1 and S2 Skin: No rashes or lesions noted Neuro: Patient oriented x3 Extremities: Normal to inspection and Yes no clubbing, cyanosis or edema PFSH Social History Housing: Apartment Patient Tobacco Use Status: Never used Tobacco e-Cigarette/Vaping Use: Never Used Current occupational status: employed Cognitive needs: No Hearing needs: No Vision needs: No Review of Systems Const All systems reviewed & are unremarkable except as noted in HPI and below Physical Exam Vital Signs: Last Vital Signs Temp 98.7 F 05/14/25 15:26 Pulse 84 05/14/25 15:26 BP 116/74 05/14/25 15:26 Pulse Ox 96 05/14/25 15:26 Oxygen Delivery Method Room Air 05/14/25 15:26 Oxygen Flow Rate 98.7 05/14/25 15:26 BMI result Body Mass Index 24.8 Assessment & Plan Assessment & Plan (1) URI, acute: Code(s): J06.9 - Acute upper respiratory infection, unspecified Plan: - VSS, pt well appearing and PE unremarkable. - flu COVID and RSV testing has been sent. - Recommend taking a daily allergy pill and a decongestant or a combination med such as Dee D. - Advise rest and hydration to support recovery. - A work note will be provided for the patient. Patient was informed and verbally consented to the use of an ambient scribe for clinic note documentation during this visit Orders: Orders SARS-CoV2/FLU/RSV Today R09.89 - Other specified symptoms and signs involving the circulatory and respiratory systems Coding Level of Care Code Est Pt Level 3 (30215) Diagnoses URI, acute J06.9
== END 2025-05-14 16:04 | disposition home or self-care (01) ==
PROVIDERS: PCP Internal Medicine; Visit Provider Physician Assistant
DX: J06.9 Acute upper respiratory infection, unspecified (principal)

== ENCOUNTER 2025-05-14 15:16 | Outpatient (REF) | payer OTHER, SELFPAY ==
[2025-05-15 13:01] LABS: Influenza A PCR NEGATIVE (Negative); Influenza B PCR NEGATIVE (Negative); Resp Syncy Virus RNA Qual PCR NEGATIVE (Negative); SARS COV2 PCR INHOUSE NEGATIVE (Negative)
== END 2025-05-14 15:17 | disposition home or self-care (01) ==
LOC: HO.LAB 15:16
PROVIDERS: Physician Assistant; PCP Internal Medicine
DX: J06.9 Acute upper respiratory infection, unspecified (principal); R09.89 Other specified symptoms and signs involving the circulatory and respiratory systems
CPT/HCPCS: 0241U; 99212

== ENCOUNTER 2025-06-25 14:48 | Outpatient (AMB) | payer OTHER, SELFPAY ==
--- OUTSIDE RECORDS SUMMARY | 2025-06-25 14:51 | XMS_ITS | Clinical Summary ---
Author Organization [facility] Address [address] [place] [address] Care Team Providers Care Rubber Flap Cutter Name Role Phone Unavailable Primary Care Provider Unavailabl e Social History Tobacco Use Types Packs/Day Years Used Date Smoking Tobacco: Never Assessed Sex and Gender Information Value Date Recorded Sex Assigned at Not on file Gender Identity Not on file Sexual Orientation Not on file Plan of Treatment Not on file
[2025-06-25 14:53] VITALS: BP 114/70; PULSE 72; RESP 18; TEMP 37.1; O2SAT 97; BMI 24.6
--- NOTE | 2025-06-25 14:53 | MHC.PC.OV ---
Vital Signs 06/25/25 14:53 Height 5 ft 8 in Weight 162 lb BMI 24.6 BP 114/70 Blood Pressure Location Lt brachial Position Sitting Respiration 18 Pulse 72 Pulse Source Pulse Oximeter Temp 98.8 F Temp Source Oral Pulse Oximetry (%) 97 Oxygen Delivery Method Room Air Intake Visit Reasons: f/u Allergies Laxative Allergy (Mild, Uncoded 06/25/25 14:55) Abdominal Pain salacylic acid Allergy (Unknown, Uncoded 06/25/25 14:55) hives Medication List - Last Reconciled 06/25/25 by Kamla Perera MD lorazepam 0.5 mg PO DAILY PRN mercaptopurine mg PO mesalamine 4.8 grams PO DAILY Tobacco use date assessed: 06/25/25 Dental Screening Dental Screen Date: 06/25/25 Did you have a dental visit in the last 12 months?: Yes Did you have a dental problem in the last 6 months where you did not have access to dental care?: No Was dental information given to patient?: Patient has dentist HPI f/u HPI Details Chief Complaint The patient presents with concerns regarding moles and upper back tightness. History of Present Illness The patient is a 39-year-old male presenting with dermatological concerns and upper back musculoskeletal discomfort. Moles: - The patient reports a history of moles and has been advised by other healthcare providers to undergo annual dermatological evaluations due to chronic medication use for ulcerative colitis. Taking mercaptopurine - The patient expresses specific concern about a couple of moles and seeks dermatological assessment to rule out any malignant changes. Upper back tightness: - The patient describes experiencing stiffness and tightness in the left upper back area. - Symptoms are described as persistent tightness, described as stiffness, with no specific reference to an inciting incident. - The patient has been advised to consider chiropractic evaluation Medical History: - Ulcerative Colitis Medications: - 6-mercaptopurine (6MP) for ulcerative colitis - mesalamine Problem List - Ulcerative Colitis - Moles - Upper back tightness Patient Instructions - Contact the referred chiropractor and book an appointment after next week. - Continue with annual dermatology check-ups, especially for mole assessment. Review of Systems - General: No fever no chills - Neurological: No headaches no dizziness - Ear nose throat: No sore throat no hearing difficulty no ear pain - Cardiovascular: No syncope, no chest pain, no palpitations - Gastrointestinal: No nausea vomiting or diarrhea - Endocrine: No polyuria polydipsia no heat intolerance - Genitourinary: No dysuria , no blood in urine Physical Exam General: No acute distress HEENT: No acute findings Neck: Supple Respiratory system: Able to talk in full sentences, no audible wheeze Cardiovascular: S1-S2 regular in rate and rhythm Gastrointestinal: No pain Extremities: No new findings shoulders with full range of motion Back no pain with percussion over cervical or thoracic spine [employer] BURLING AND JOINING: Alert awake oriented x3 motor sensory intact Skin: Normal turgor, moles appear benign, skin tags present single in the back [facility] Surgical History No pertinent past surgical history Social History Housing: Apartment Patient Tobacco Use Status: Never used Tobacco e-Cigarette/Vaping Use: Never Used service: No Current occupational status: employed Cognitive needs: No Hearing needs: No Vision needs: No Questionnaire PHQ-9 Over the last 2 weeks, how often have you been bothered by any of the following problems? 1. Little interest or pleasure in doing things: several days 2. Feeling down, depressed, or hopeless: several days 3. Trouble falling or staying asleep, or sleeping too much: several days 4. Feeling tired or having little energy: several days 5. Poor appetite or overeating: not at all 6. Feeling bad about yourself - or that you are a failure or have let yourself or your family down: several days 7. Trouble concentrating on things, such as reading the newspaper or watching television: several days 8. Moving or speaking so slowly that other people could have noticed. Or the opposite - being so fidgety or restless that you have been moving around a lot more than usual: not at all 9. Thoughts that you would be better off or of hurting yourself in some way: not at all Total score: 6 Depression Screening Interpretation: Negative Depression Screening Done: Yes 73191 - PHQ-9 Billing: Yes Source: Developed by Drs. Hoang Weinberg, Gemini Hutchinson, Sushant Fajardo and colleagues, with an educational wil from [employer]. Thrive Questionnaire Date Thrive assessed: 06/25/25 I am a: Patient What is your living situation today?: I have a place to live, but I am worried about losing it in the future Within the past 12 months, did the food you bought not last and you didn't have the money to get more?: Sometimes True Within the past 12 months, did you worry whether your food would run out before you got money to buy more?: Sometimes True Do you have trouble paying for medicines?: Yes Do you have trouble getting transportation to medical appointments?: I choose not to answer this question Do you have trouble paying your heating and electricity bill?: I choose not to answer this question Do you have trouble taking care of your child, family member or friend?: I choose not to answer this question Do you have trouble with day-to-day activities such as bathing, preparing meals, shopping, managing finances, etc.?: I choose not to answer this question Are you currently unemployed and looking for a job?: I choose not to answer this question Are you interested in more education?: I choose not to answer this question Please select the resources that you would like help with: Housing/Assisted, Paying for medicine, Utilities and Education Currently or been in a relationship where the following occur: I choose not to answer THRIVE Score: 3 AUDIT C Alcohol Use Questionnaire (AUDIT-C) 1. How often do you have a drink containing alcohol?: Never 3. How often do you have six or more drinks on one occasion?: Never Total Score: 0 GAVIN-7 AMB Questionnaire GAVIN-7 Date GAVIN - 7 assessed: 06/25/25 Feeling nervous, anxious, or on edge: 1 = Several days Not being able to stop or control worryin = Several days Worrying too much about different things: 1 = Several days Trouble relaxin = Several days Being so restless that it is hard to sit still: 1 = Several days Becoming easily annoyed or irritable: 1 = Several days Feeling afraid as if something awful might happen: 1 = Several days Total GAVIN-7 score (0-4 normal; 5-9 mild; 10-14 moderate; 15-21 severe): 7 Source: Developed by Drs. Hoang Weinberg, Gemini Hutchinson, Sushant Fajardo and colleagues, with an educational wil from [employer]. GAVIN-7 Assessment Billing GAVIN-7 Assessment Tool: GAVIN-7 Assessment 96339 Physical exam (Primary Care) Vital Signs: Last Vital Signs Temp 98.8 F 06/25/25 14:53 Pulse 72 06/25/25 14:53 Resp 18 06/25/25 14:53 BP 114/70 06/25/25 14:53 Pulse Ox 97 06/25/25 14:53 Oxygen Delivery Method Room Air 06/25/25 14:53 BMI result Body Mass Index 24.6 Tobacco/Smoking Status: Tobacco use Status Tobacco use date assessed 06/25/25 06/25/25 14:59 Patient Tobacco Use Status Never used Tobacco 06/25/25 14:59 e-Cigarette/Vaping Use Never Used 06/25/25 14:59 PHQ-9: PHQ-9 Score PHQ-9: Total score 6 06/25/25 15:07 Depression Screening Interpretation: Negative Thrive Assessment: Date of Thrive Assessment Date Thrive assessed 06/25/25 06/25/25 14:59 Currently or been in a relationship where the following occur: I choose not to answer Coding Level of Care Code Est Pt Level 3 (29551) Diagnoses Muscle strain of left upper back, initial encounter S29.012A Encounter type: initial encounter Crohn's disease with complication, unspecified gastrointestinal tract location K50.919 Gastrointestinal tract location: unspecified location Digestive disease complication type: unspecified complication Skin cancer screening Z12.83 Additional Codes GAVIN-7 Assessment Billing - GAVIN-7 Assessment Tool: GAVIN-7 Assessment 73342 ([id number]) PHQ-9 - 38346 - PHQ-9 Billing: Yes ([id number]) Assessment & Plan Assessment & Plan (1) Muscle strain of left upper back: Code(s): S29.012A - Strain of muscle and tendon of back wall of thorax, initial encounter Category: Medical Qualifiers: Encounter type: initial encounter Qualified Code(s): S29.012A - Strain of muscle and tendon of back wall of thorax, initial encounter (2) Crohn's disease: Code(s): K50.90 - Crohn's disease, unspecified, without complications Category: Medical Qualifiers: Gastrointestinal tract location: unspecified location Digestive disease complication type: unspecified complication Qualified Code(s): K50.919 - Crohn's disease, unspecified, with unspecified complications (3) Skin cancer screening: Code(s): Z12.83 - Encounter for screening for malignant neoplasm of skin Category: Medical Plan Chief Complaint The patient presents with concerns regarding moles and upper back tightness. History of Present Illness The patient is a 39-year-old male presenting with dermatological concerns and upper back musculoskeletal discomfort. Moles: - The patient reports a history of moles and has been advised by other healthcare providers to undergo annual dermatological evaluations due to chronic medication use for ulcerative colitis. Taking mercaptopurine - The patient expresses specific concern about a couple of moles and seeks dermatological assessment to rule out any malignant changes. Upper back tightness: - The patient describes experiencing stiffness and tightness in the left upper back area. - Symptoms are described as persistent tightness, described as stiffness, with no specific reference to an inciting incident. - The patient has been advised to consider chiropractic evaluation Medical History: - Ulcerative Colitis Medications: - 6-mercaptopurine (6MP) for ulcerative colitis - mesalamine Problem List - Ulcerative Colitis - Moles - Upper back tightness Patient Instructions - Contact the referred chiropractor and book an appointment after next week. - Continue with annual dermatology check-ups, especially for mole assessment. Orders: Referrals Dermatology Referral Z12.83 - Encounter for screening for malignant neoplasm of skin Chiropractic Referral S29.012A - Strain of muscle and tendon of back wall of thorax, initial encounter
== END 2025-06-25 16:03 | disposition home or self-care (01) ==
LOC: HO.HMCC 14:49
PROVIDERS: PCP Internal Medicine; Visit Provider Internal Medicine
DX: S29.012A Strain of muscle and tendon of back wall of thorax, initial encounter (principal); K50.919 Crohn's disease, unspecified, with unspecified complications; Z12.83 Encounter for screening for malignant neoplasm of skin

== ENCOUNTER → 2025-06-25 14:48 | Outpatient (BNVA) | payer OTHER, SELFPAY | PROVIDERS: PCP Internal Medicine; Visit Provider Internal Medicine | DX: K50.919 Crohn's disease, unspecified, with unspecified complications (principal); S29.012A Strain of muscle and tendon of back wall of thorax, initial encounter; X58.XXXA Exposure to other specified factors, initial encounter; Y93.9 Activity, unspecified; Y92.9 Unspecified place or not applicable; Y99.9 Unspecified external cause status | CPT/HCPCS: 96127; 99212 ==